=== PATIENT | female | born 1960 | race Caucasian/White ===

== ENCOUNTER 2016-09-19 10:02 | Day surgery (SDC) | payer OTHER ==
[~2016-09-19] VITALS: Ht 154.9 cm; Wt 92.3 kg
[2016-09-19] MEDS ORDERED: LOSARTAN (10:38)
[2016-09-19] MEDS ORDERED: ZOLOFT (10:38)
[2016-09-19] MEDS ORDERED: SIMVASTATIN (10:38)
[2016-09-19] MEDS ORDERED: ADVIL (10:38)
[2016-09-19] MEDS ORDERED: CALCIUM + D3 (10:38)
[2016-09-19] MEDS ORDERED: KEPPRA (10:38)
[2016-09-19 10:40] VITALS: BP 120/74; PULSE 78; RESP 20; Ht 154.9 cm; Wt 92.3 kg
[2016-09-19] MEDS ORDERED: FENTAnyl 50 MCG/ML VIAL ONE (10:42)
[2016-09-19] MEDS ORDERED: PROPOFOL 40 ML ONE (10:42)
[2016-09-19] MEDS ORDERED: MIDAZOLAM 1 MG/ML 2 ML INJ ONE (10:43)
[2016-09-19 11:45] VITALS: BP 107/73; PULSE 62; RESP 22
--- NOTE | 2016-09-19 18:50 | GILP ---
DATE OF PROCEDURE: NAME OF PROCEDURE: Colonoscopy. SURGEON: Kodi Jj MD PREOPERATIVE DIAGNOSIS: Screening colonoscopy. POSTOPERATIVE DIAGNOSES: 1. Colonoscopy all the way to the cecum. 2. Internal hemorrhoids. 3. No colon neoplasm was identified. INDICATION FOR THE PROCEDURE: Ms. Serena Mcbride is a 56-year-old female patient who was scheduled for screening colonoscopy. The procedure and possible complications were well explained to the patient. She understood and con sented to the procedure. DESCRIPTION OF PROCEDURE: Under the influence of anesthesia, the colonoscope was carefully introduc ed in the rectum, and under direct vision, it was advanced all the way to the cecum. FINDINGS: The patient had internal hemorrhoids. No colon neoplasm was identified. She tolerated the procedure very well. There was no complication from the procedure. At the end of the procedure, she was awake with stable vital signs, and she was discharged home to the care of he r family. IMPRESSION: 1. Colonoscopy all the way to the cecum. 2. Internal hemorrhoids. 3. No colon neoplasm was identified. PLAN: Next screening colonoscopy in 10 years. Dictated By: KODI IBRAHIM/JOYCE Conf#: [id number] DID#: [id number]
== END 2016-09-19 14:25 | disposition home or self-care (01) ==
LOC: GIL 10:02
PROVIDERS: ATTEND Internal Medicine Gastroenterology
DX: Z12.11 Encounter for screening for malignant neoplasm of colon (principal); K64.8 Other hemorrhoids; I10 Essential (primary) hypertension
CPT/HCPCS: 45378; J2250; J3010; Z7610

== ENCOUNTER 2017-02-07 12:55 | Emergency (ER) | payer OTHER ==
[~2017-02-07] VITALS: Ht 160 cm; Wt 89.0 kg
[~2017-02-07 12:55] MED LIST: ADVIL; CALCIUM + D3; KEPPRA; LOSARTAN; SIMVASTATIN; ZOLOFT
[2017-02-07 12:57] VITALS: Ht 160 cm; Wt 89.0 kg
[2017-02-07] MEDS ORDERED: DIPHTH/TET/ACEL PERTUSS (ADULT) 0.5 ML VIAL IM* ONE (13:30)
[2017-02-07] MEDS ORDERED: LIDOCAINE 1% (MDV) 20 ML INJ SC ONE (13:30)
[2017-02-07] MEDS ORDERED: NAPR-260 PO (14:40)
--- NOTE | 2017-02-07 14:52 | ERD ---
ER Documentation Chief Complaint Date/Time DATE: 02/07/17 TIME: 14:48 Chief Complaint LEFT BIG TOE INJURY HPI Patient is a 56-year-old female with past medical history of seizures and hypertension and anxiety who presents to the ED with a laceration to her left great toe. She states that a roll of copper fell on her toe today as she was trying to carry it to the garage. She states that this occurred 2 hours ago. She states that she has pain only at her toe she is able to ambulate however she does have pain. Denies fever or chills. Denies passing out or losing consciousness. Denies vomiting. Is not up-to-date with her tetanus vaccine. No other complaints. ROS All systems reviewed and are negative except as per history of present illness. Medications Home Meds Active Scripts Naproxen* (Naprosyn*) 500 Mg Tablet, 500 MG PO BID Y for PAIN AND/OR INFLAMMATION, #30 TAB Prov:SHERRY TOURE PA-C 02/07/17 Reported Medications [Calcium + D3] No Conflict Check 09/19/16 [Advil] No Conflict Check 09/19/16 [Simvastatin] No Conflict Check 09/19/16 [Losartan] No Conflict Check 09/19/16 [Zoloft] No Conflict Check 09/19/16 [Keppra] No Conflict Check 09/19/16 Allergies Allergies: Coded Allergies: No Known Allergy (Unverified , 09/19/16) PMhx/Soc History of Surgery: Yes (RIGHT KNEE SX) Anesthesia Reaction: No Hx Neurological Disorder: Yes (SEIZURES) Hx Respiratory Disorders: No Hx Cardiac Disorders: Yes (HTN, HYPERLIPIDEMIA) Hx Psychiatric Problems: Yes (ANXIETY) Hx Miscellaneous Medical Probl: Yes (OBESITY) Hx Alcohol Use: No Hx Substance Use: No Hx Tobacco Use: No FmHx Family History: No coronary disease, No diabetes, No other Physical Exam Vitals Vital Signs Date Time Temp Pulse Resp B/P Pulse Ox O2 Delivery O2 Flow Rate FiO2 02/07/17 12:57 98.1 78 20 168/89 99 Physical Exam GENERAL: Well-developed, well-nourished female. Appears in no acute distress. HEAD: Normocephalic, atraumatic. EYES: Pupils are equally reactive bilaterally. EOMs grossly intact. No conjunctival erythema. ENT: Moist mucous membranes. No uvula deviation. No kissing tonsils. No exudates. NECK: Supple. No lymphadenopathy or thyromegaly. No meningismus. negative kernig. negative brudinski. LUNG: Clear to auscultation bilaterally. No rhonchi, wheezing, rales or coarse breath sounds. HEART: Regular rate and rhythm. No murmurs, rubs or gallops. Extremities: Equal pulses bilaterally. No peripheral clubbing, cyanosis or edema. No unilateral leg swelling. Tenderness to the left great toe. Mild ecchymosis. 2 horizontal lacerations on the dorsum of the left great toe. Range of motion intact. Sensation intact. No step-offs or deformities. NEUROLOGIC: Alert and oriented. Moving all four extremities. 5/5 strength in all extremities. Normal speech. Steady gait. SKIN: Normal color. Warm and dry. No rashes or lesions. Capillary refill < 2 seconds Results 24 hrs Current Medications Medications (Trade) Dose Ordered Sig/Julian Route PRN Reason Start Time Stop Time Status Last Admin Dose Admin Diphtheria/ Tetanus/Acell Pertussis (Adacel) 0.5 ml ONCE ONCE IM* 02/07/17 13:30 02/07/17 13:31 DC 02/07/17 13:30 Lidocaine (Xylocaine 1% (Mdv) 20 ml) 20 ml ONCE ONCE SC 02/07/17 13:30 02/07/17 13:31 DC Procedures/MDM ER COURSE: I kept the patient and/or family informed of laboratory and diagnostic imaging results throughout the emergency room course. IMAGING STUDIES MEDICATIONS Tetanus. Tolerated well with no adverse reaction. PROCEDURES Laceration Repair by me: Anesthesia: 1% lidocaine locally Location: LEFT GREAT TOE Tendon/Joint/Nerves: No injury Foreign body: None detected after copious irrigation and exploration Technique: 5, 5-0 ETHILON Simple Interrupted Sutures Complexity: No subcutaneous sutures/mucosal repair/ edge excision Post Closure Length: 2 AREAS OF 6 CM EACH Patient's bleeding was easily controlled in the department and there is no indication of anemia. No evidence of compartment syndrome, neurologic injury, vascular injury, open joint, tendon laceration, or foreign body. Patient is appropriate for outpatient follow up. 48 hour wound check. Scar minimization instructions given. MEDICAL DECISION MAKING: This is a 56-year-old female who presents with laceration to her left great toe after sustaining an injury where a copper roll fell on her toe. Vital signs were reviewed. Patient is afebrile. Patient is not hypoxic. Patient is not toxic or ill-appearing. Dr. cunningham reviewed her imaging studies. X-ray does not show any fracture or dislocation. Laceration was sutured here in the ED with no complications. Low suspicion for necrotizing fasciitis, SJS, toxic epidermal necrolysis, Kawasaki, erythema multiforme, gangrene, scarlet fever, meningococcemia, sepsis, anaphylaxis, sepsis, deep space infection, or foreign body. Low suspicion for dislocation, fracture, septic joint, compartment syndrome, osteomyelitis, cellulitis, avascular necrosis, neurological injury, vascular injury, tendon laceration. DISCHARGE: At this time, patient is stable for discharge and outpatient management with no new complaints during the ER course. Patient was sent home with Naprosyn for pain and to return in 2 days for wound check in 7 days for suture removal. Patient will be discharged home with instructions to recheck for new or worsening symptoms such as fever, nausea, weakness, LOC and to follow up with primary care in the next 1-2 days. Patient was advised to return to the ER for any new or worsening symptoms. Plan was discussed and patient and/or family understands and agrees. Home instructions were given. Departure Diagnosis: Primary Impression: Laceration Condition: Stable Patient Instructions: Laceration, Foot Additional Instructions: RETURN IN 2 DAYS FOR WOUND CHECK RETURN IN 7 DAYS FOR SUTURE REMOVAL Call your primary care doctor TOMORROW for an appointment during the next 1-2 days.See the doctor sooner or return here if your condition worsens before your appointment time. SHERRY TOURE PA-C Feb 07, 2017 14:52
--- NOTE | 2017-02-07 15:16 | RADRPT ---
PROCEDURE: XR Great Toe. CLINICAL INDICATION: Pain, trauma. TECHNIQUE: Three views of the right great toe are available for review COMPARISON: Pain/trauma FINDINGS: Moderate soft tissue swelling is seen at the medial and dorsal aspect of the IP joint. There are fa int densities project in this region, which may overlie the patient's skin. There is no acute osseo us abnormality or evidence of fracture. IMPRESSION: 1. Soft tissue swelling with faint radiodensities, possibly overlying the patient skin, to be corre lated clinically. 2. No acute osseous abnormality. RPTAT: EE .Santos Bustamante MD, MD Date Time Electronically viewed and signed by .Santos Bustamante MD, on 02/07/2017 15:15 .d/
== END 2017-02-07 15:00 | disposition home or self-care (01) ==
LOC: FTE 12:55
DX: S91.112A Laceration without foreign body of left great toe without damage to nail, initial encounter (principal); I10 Essential (primary) hypertension; E66.9 Obesity, unspecified; W20.8XXA Other cause of strike by thrown, projected or falling object, initial encounter; Y92.9 Unspecified place or not applicable; Z23 Encounter for immunization; Z68.34 Body mass index [BMI] 34.0-34.9, adult
CPT/HCPCS: 12004; 73660; 90471; 90715; Z7502; Z7610

== ENCOUNTER 2017-02-09 07:33 | Emergency (ER) | payer OTHER ==
[~2017-02-09] VITALS: Ht 160 cm; Wt 93.0 kg
[~2017-02-09 07:33] MED LIST changes: +NAPR-260 PO
[2017-02-09 07:40] VITALS: Ht 160 cm; Wt 93.0 kg
--- NOTE | 2017-02-09 10:20 | ERD ---
ER Documentation Chief Complaint Date/Time DATE: 02/09/17 TIME: 10:17 Chief Complaint 2 DAYS WOUND CHECK HPI This is a 56-year-old female presenting to the emergency department for wound check. Patient had a laceration to right great toe 2 days ago and had 5 sutures placed while the ED here. No warmth, erythema, drainage or bleeding. Sutures are in place and intact. No fevers or chills. Patient states swelling has decreased and pain has improved. ROS All systems reviewed and are negative except as per history of present illness. Medications Home Meds Active Scripts Naproxen* (Naprosyn*) 500 Mg Tablet, 500 MG PO BID Y for PAIN AND/OR INFLAMMATION, #30 TAB Prov:SHERRY TOURE PA-C 02/07/17 Reported Medications [Calcium + D3] No Conflict Check 09/19/16 [Advil] No Conflict Check 09/19/16 [Simvastatin] No Conflict Check 09/19/16 [Losartan] No Conflict Check 09/19/16 [Zoloft] No Conflict Check 09/19/16 [Keppra] No Conflict Check 09/19/16 Allergies Allergies: Coded Allergies: No Known Allergy (Unverified , 09/19/16) PMhx/Soc History of Surgery: Yes (RIGHT KNEE SX) Anesthesia Reaction: No Hx Neurological Disorder: Yes (SEIZURES) Hx Respiratory Disorders: No Hx Cardiac Disorders: Yes (HTN, HYPERLIPIDEMIA) Hx Psychiatric Problems: Yes (ANXIETY) Hx Miscellaneous Medical Probl: Yes (OBESITY) Hx Alcohol Use: No Hx Substance Use: No Hx Tobacco Use: No Physical Exam Vitals Vital Signs Date Time Temp Pulse Resp B/P Pulse Ox O2 Delivery O2 Flow Rate FiO2 02/09/17 07:40 97.6 72 18 148/91 98 Physical Exam Const: Alert, no acute distress Head: Atraumatic Eyes: Normal Conjunctiva ENT: Normal External Ears, Nose and Mouth. Neck: Full range of motion..~ No meningismus. Resp: Clear to auscultation bilaterally Cardio: Regular rate and rhythm, no murmurs Abd: Soft, non tender, non distended. Normal bowel sounds Skin: 5 interrupted sutures to dorsum of right great toe. Sutures are in place and intact. No induration, warmth, drainage or abscess formation. No fluctuance. No surrounding erythema. Back: No midline or flank tenderness Ext: No cyanosis, or edema Neur: Awake and alert Psych: Normal Mood and Affect Procedures/MDM MDM: 56-year-old female presents emergency department for wound check to right great toe. Patient had 5 sutures placed to dorsum of right great toe after heavy object fell on top of toe. Patient denies pain. Sutures are intact and without signs or symptoms of infection. No surrounding erythema or drainage. No fevers or chills. Vital signs are stable. Wound shows no evidence of infection, foreign body, neurologic injury, vascular injury, open joint or tendon laceration. Patient appropriate for outpatient follow up. Instructed patient to follow-up in ED in 5 days for suture removal. Return to ED for any high fever, chest pain, difficulty breathing, shortness breath, wheezing, vomiting, diarrhea, abdominal pain or any new or worsening symptoms. Patient verbalizes understanding. All questions answered at discharge. Departure Diagnosis: Primary Impression: Encounter for wound re-check Condition: Stable Patient Instructions: Wound Care Referrals: LIDYA LYNN (PCP) Additional Instructions: Return to ED in 5 days for suture removal. Return to ED for any high fever, chest pain, difficulty breathing, shortness breath, wheezing, vomiting, diarrhea, abdominal pain or any new or worsening symptoms. KEV SANTIAGO NP Feb 09, 2017 10:19
== END 2017-02-09 08:18 | disposition home or self-care (01) ==
LOC: FTE 07:33
DX: Z48.01 Encounter for change or removal of surgical wound dressing (principal); I10 Essential (primary) hypertension; E66.9 Obesity, unspecified; Z68.36 Body mass index [BMI] 36.0-36.9, adult
CPT/HCPCS: 99281

== ENCOUNTER → 2017-10-03 | Outpatient (CLI) | END | disposition home or self-care (01) ==

== ENCOUNTER 2019-01-21 07:18 | Inpatient (IN) | payer OTHER ==
[~2019-01-21] VITALS: Ht 152.4 cm; Wt 93.0 kg
[2019-01-21] VITALS (14 sets, daily range): BP systolic 94–117; BP diastolic 51–76; PULSE 53–80; RESP 16–20
[2019-01-21] MEDS: LACTATED RINGER'S 1,000 ML IV SCH ×2 (06:30→14:30)
[~2019-01-21 07:18] MED LIST changes: +ACETAMINOPHEN 500 MG TAB PO ONE; +CEFAZOLIN 1 GM/50 ML (PMX) 50 ML IVPB ONE; +CLONIDINE INJ SCH; +DEXAMETHASONE 4 MG/ML 1 ML INJ IV ONE; +LANSOPRAZOLE 30 MG CAP PO ONE; +MORPHINE SULFATE INJ SCH; -NAPR-260 PO; +NAPR-985 PO; +ONDANSETRON 4 MG INJ IV ONE; +ROPIVACAINE INJ SCH; +[UNRECOGNIZED DRUG - OTHER] INJ SCH; +oxyCODONE (CR) 10 MG TAB [oxyCONTIN] PO ONE
[2019-01-21] MEDS ORDERED: LACO200T2 PO (07:52)
[2019-01-21] MEDS ORDERED: TOPI100T11 PO (07:53)
[2019-01-21] MEDS ORDERED: LEVE100018 PO (07:53)
[2019-01-21] MEDS ORDERED: LOSA100T15 PO (07:54)
[2019-01-21] MEDS ORDERED: SERT100T PO (07:54)
[2019-01-21] MEDS ORDERED: CALC1TAB79 PO (07:55)
[2019-01-21] MEDS ORDERED: SIMV10TA PO (07:55)
[2019-01-21] MEDS ORDERED: ACETAMINOPHEN 1000MG/100ML IV 100 ML IVPB ONE (08:00)
[2019-01-21] MEDS ORDERED: morphine SULFATE/PF (10 MG/10 ML) INJ ONE (08:38)
[2019-01-21] MEDS ORDERED: GLYCOPYRROLATE 0.4 MG INJ ONE (08:38)
[2019-01-21] MEDS ORDERED: CEFAZOLIN 1 GM INJ ONE (08:38)
[2019-01-21] MEDS ORDERED: NEOSTIGMINE 3 MG/3 ML SYRINGE ONE (08:38)
[2019-01-21] MEDS ORDERED: DEXAMETHASONE 4 MG/ML 5 ML INJ ONE (08:38)
[2019-01-21] MEDS ORDERED: MIDAZOLAM 1 MG/ML 2 ML INJ ONE (08:38)
[2019-01-21] MEDS ORDERED: ONDANSETRON 4 MG INJ ONE (08:38)
[2019-01-21] MEDS ORDERED: PROPOFOL 20 ML ONE (08:38)
[2019-01-21] MEDS ORDERED: FENTAnyl 50 MCG/ML VIAL ONE (08:38)
[2019-01-21] MEDS ORDERED: ROCURONIUM 50 MG INJ ONE (08:38)
[2019-01-21] MEDS ORDERED: ROPIVACAINE 0.5 % 30 ML VIAL ONE ×2 (08:38→12:43)
[2019-01-21] MEDS ORDERED: BACITRACIN 50000 UNITS INJ ONE (10:14)
[2019-01-21] MEDS ORDERED: POLYMYXIN B 500000 UNIT INJ ONE (10:17)
--- NOTE | 2019-01-21 10:19 | PREAC ---
Date/Time of Note Date/Time of Note DATE: 01/21/19 TIME: 10:17 Anesthesia Eval and Record Evaluation Time Pre-Procedure Interview DATE: 01/21/19 TIME: 10:16 Age 58 Sex female NPO: 8 hrs Preoperative diagnosis RIGHT KNEE PRIMARY OSTEOARTHRITIS Planned procedure RIGHT TOTAL KNEE ARTHROPLASTY Past Medical History Past Medical History: Includes Cardio: HTN, Dyslipidemia Neuro: Seizure disorder (ABSENT SEIZURES THAT LAST 10-15 SECONDS, NO MOVEMENTS) GI: Morbid obesity Surgery & Anesthesia Issues No known issue Meds Anticoagulation: No Beta Phill within 24 hr: No Reason Beta Phill not given: Pt. not on B-Phill Reported Medications Calcium Carbonate/Vitamin D3 (Oysco 500+D Tablet) 1 Each Tablet, 2 EACH PO BID, TAB 01/21/19 Simvastatin* (Zocor*) 10 Mg Tablet, 10 MG PO QHS, #30 TAB 01/21/19 Losartan Potassium* (Losartan Potassium*) 100 Mg Tablet, 100 MG PO DAILY, TAB 01/21/19 Sertraline Hcl* (Zoloft*) 100 Mg Tablet, 100 MG PO QHS, #30 TAB 01/21/19 Levetiracetam* (Keppra*) 1,000 Mg Tablet, 2000 MG PO BID, TAB 01/21/19 Topiramate* (Topiramate*) 100 Mg Tablet, 200 MG PO BID, TAB 01/21/19 Lacosamide (Vimpat) 200 Mg Tablet, 200 MG PO BID, TAB 01/21/19 Discontinued Reported Medications [Calcium + D3] No Conflict Check 09/19/16 [Advil] No Conflict Check 09/19/16 [Simvastatin] No Conflict Check 09/19/16 [Losartan] No Conflict Check 09/19/16 [Zoloft] No Conflict Check 09/19/16 [Keppra] No Conflict Check 09/19/16 Discontinued Scripts Naproxen* (Naprosyn*) 500 Mg Tablet, 500 MG PO BID PRN for PAIN AND/OR INFLAMMATION, #30 TAB Prov:SHERRY TOURE PA-C 02/07/17 Current Medications Lactated Ringer's 1,000 ml @ 125 mls/hr Q8H IV Last administered on 01/21/19at 06:30; Admin Dose 125 MLS/HR; Start 01/21/19 at 06:30; Stop 01/21/19 at 16:00 Ropivacaine/ Morphine Sulfate/ Clonidine HCl/ Ketorolac Tromethamine/ Vancomycin HCl/ Sodium Chloride/ Epinephrine CEFUROXIME CURRENTLY ... INTRA-OP INJ ; Start 01/21/19 at 06:30; Stop 01/21/19 at 16:00 Meds reviewed: Yes Allergies Coded Allergies: No Known Allergy (Unverified , 01/21/19) Allergies Reviewed: Yes Labs/Studies Labs Reviewed: Reviewed by anesthesiologist test: N/A Studies: ECG (RBBB), CXR (NAPD) Pre-procedure Exam Last vitals Vital Signs Date Temp Pulse Resp B/P (MAP) Pulse Ox O2 O2 Flow FiO2 Time Delivery Rate 01/21/19 97.4 63 20 117/76 97 Room Air 08:33 (90) Airway: Adequate mouth opening, Adequate thyromental dist Mallampati: Mallampati II Teeth: Normal Lung: Normal Heart: Normal ASA Physical Status ASA physical status: 3 Emergency: None Planned Anesthetic General/MAC: ETT Neuraxial: Spinal Nerve block: Femoral (right) Planned Pain Management Sub-arachniod narcotics, Single shot nerve block, Parenteral pain med Pre-operative Attestations Prior to commencing anesthesia and surgery, the patient was re-evaluated, there was verification of: *The patient's identity *The results of appropriate recent lab work and preoperative vital signs *The above evaluation not changing prior to induction *Anesthetic plan, risk benefits, alternative and complications discussed with patient/family; questions answered; patient/family understands, accepts and wishes to proceed. Willis Avendano M.D. Jan 21, 2019 10:19
--- NOTE | 2019-01-21 10:23 | HPN ---
Date/Time of Note Date/Time of Note DATE: 01/21/19 TIME: 10:23 Interval H&P Admission Note Pt. seen H&P reviewed: No system changes RAYSA CLAIRE MD Jan 21, 2019 10:23
[2019-01-21] MEDS: TRANEXAMIC ACID 1GM/100ML(PMX) 100 ML INTRA-OP X1 IVPB ONE ×2 (10:43→11:51)
[2019-01-21] MEDS ORDERED: HYDROmorphONE 0.5 MG/0.5 ML SYG IV PRN ×2 (11:30)
[2019-01-21] MEDS ORDERED: IPRATROPIUM (NEB) 0.5 MG/2.5 ML AMP HHN PRN (11:30)
[2019-01-21] MEDS ORDERED: ZOLPIDEM 5 MG TAB PO PRN (11:30)
[2019-01-21] MEDS ORDERED: NALOXONE (0.4 MG/ML) INJ IV PRN ×2 (11:30→12:30)
[2019-01-21] MEDS ORDERED: MEPERIDINE 25 MG INJ IV PRN (11:30)
[2019-01-21] MEDS ORDERED: hydrALAzine 20 MG INJ IV PRN (11:30)
[2019-01-21] MEDS ORDERED: OXYCODONE/ACETAMINOPHEN (5/325) TAB PO PRN ×2 (11:30)
[2019-01-21] MEDS ORDERED: TRIMETHOBENZAMIDE 100 MG/ML VIAL IM PRN ×2 (11:30)
[2019-01-21] MEDS ORDERED: EPHEDrine 25 MG/5 ML SYG IV PRN (11:30)
[2019-01-21] MEDS ORDERED: MIDAZOLAM 1 MG/ML 2 ML INJ IV PRN (11:30)
[2019-01-21] MEDS ORDERED: FENTAnyl 50 MCG/ML VIAL IV PRN ×3 (11:30)
[2019-01-21] MEDS ORDERED: LABETALOL HCL 20MG INJ IV PRN (11:30)
[2019-01-21] MEDS ORDERED: ONDANSETRON 4 MG INJ IV PRN ×2 (11:30)
[2019-01-21] MEDS ORDERED: DIPHENHYDRAMINE 50 MG INJ IV PRN ×2 (11:30)
[2019-01-21] MEDS ORDERED: ALBUTEROL 0.083% (NEB) 2.5 MG/3 ML AMP HHN PRN (11:30)
[2019-01-21] MEDS ORDERED: NALBUPHINE HCL (10 MG/1 ML) INJ IV PRN (11:30)
[2019-01-21] MEDS ORDERED: HYDROmorphONE 1 MG/5 ML IV SYRINGE IV PRN ×3 (11:30)
[2019-01-21] MEDS: TRANEXAMIC ACID 1GM/100ML(PMX) 100 ML PRE-OP X1 IVPB ONE ×2 (11:52→12:19)
--- NOTE | 2019-01-21 12:25 | SIPON ---
Date/Time of Note Date/Time of Note DATE: 01/21/19 TIME: 12:24 Operative Report Preoperative Diagnosis Right Knee Osteoarthritis Postoperative Diagnosis Same Operation/Procedure Performed Right Total Knee Arthroplasty Surgeon Jensen Claire MD operational assistant Geoffrey Leslie Second assist: BAYLEE PERDOMO Anesthesia: spinal Estimated blood loss: 250 - 300 ml's Transfusion Required none Specimen bone Grafts/Implants none Complications none JENSEN CLAIRE MD Jan 21, 2019 12:25
[2019-01-21] MEDS ORDERED: ASPIRIN 81 MG TAB PO ONE (12:30)
[2019-01-21] MEDS ORDERED: SENNA/DOCUSATE NA (8.6MG/50MG) TAB PO PRN (12:30)
[2019-01-21] MEDS ORDERED: NACL 0.9% 3 ML SYG IV SCH (12:30)
[2019-01-21] MEDS ORDERED: SUGAMMADEX SODIUM 200 MG/2 ML VIAL IV ONE (12:35)
--- NOTE | 2019-01-21 12:36 | OPR ---
Date/Time of Note Date/Time of Note DATE: 01/21/19 TIME: 12:28 Operative Report Free Text/Dictation DATE OF OPERATION: January 21, 2019 SURGEON: Raysa Claire MD SOUR BLEACHING PLEATER: Geoffrey DONIS SOUR BLEACHING PLEATER: BRIDGETTE Aponte PREOPERATIVE DIAGNOSIS: Right knee osteoarthritis. POSTOPERATIVE DIAGNOSIS: Right knee osteoarthritis. PROCEDURES PERFORMED: Right total knee arthroplasty, CPT code 54967. ANESTHESIOLOGIST: Dr. Avendano ANESTHESIA: Spinal. ESTIMATED BLOOD LOSS: 300 mL. COMPLICATIONS: None. SPECIMENS: Resected bone. DISPOSITION: PACU in stable condition. TOURNIQUET TIME: 44 minutes at 250 mmHg. IMPLANT USED: Vu and Nephew size 4 Maddy tibial baseplate, size 5 standard posterior stabilized Oxinium femur, size 9mm high flexion polyethylene, size 32 mm patella, 10 x 100 mm stem. INDICATION FOR PROCEDURE: This is an 58-year-old female with end-stage osteoarthritis of the right knee who had failed nonoperative management. Risks, benefits, alternatives of surgical intervention were discussed with the patient and informed consent was obtained. The risks of surgery include but are not limited to infection, deep venous thrombosis, pulmonary embolism, damage to nerves and blood vessels, numbness around incision site, stiffness of knee, need for total knee manipulation under anesthesia, need for blood transfuion, heart attack, stroke, risks associated with anesthesia, implant loosening, wear of prosthesis, need for revision surgery, and . DESCRIPTION OF PROCEDURE: The patient was met in the preoperative suite. The correct operative site was confirmed and marked. The patient was then brought into operating room. After induction of anesthesia, the patient was placed in the supine position on the operating room table. A tourniquet was applied to right upper thigh. The right lower extremity was prepped and draped in the usual sterile fashion. Before starting, a timeout was taken to identify the correct operative site and confirm preoperative antibiotics consisting of 1 g of IV Ancef, along with 1 g of tranexamic acid were administered. At this point, the right leg was elevated and exsanguinated with an Esmarch and tourniquet was then insufflated for the above noted time. A midline incision was made and median parapatellar arthrotomy was then completed. The lateral patellar retinacular ligaments were released. A sleeve of tissue was released from the medial proximal tibia. The cruciate ligaments and the menisci were then excised. At this point, the custom distal femur cutting block was then pinned and 9.5 mm was resected from the distal femur. Since the patient had a 15 degree flexion contracture, additional 2 mm was resected. The 4-in-1 cutting block, size 5 was then placed. An wilda wing was used to confirm that notching of the anterior cortex of the femur would not occur. The anterior and posterior condylar cuts were completed followed by the anterior and posterior chamfer cuts. The osteophytes were then removed with a rongeur. At this point, the tibia was subluxed anteriorly. Appropriate retractors were placed. The custom tibial cutting block was then pinned. The drop was used to ensure the correct alignment. Approximately 11 mm was resected off the lateral tibial plateau and 9 mm off the medial tibial plateau. Osteophytes were then removed. At this point, the flexion extension gaps were checked with a 9 mm gap photo checker and assembler and noted to be equal. Next, trial 5 standard femur was then pinned and the box cut was then completed. The tibia was then subluxed anteriorly and measured to size 4. The tibial tray was then pinned and a keel was then punched. The trial components were placed with a 9 mm polyethylene and noted to have full extension and greater than 120 degrees of flexion. The patella was then subluxed laterally and sized to 24 mm. Approximately, 9 mm was resected. The patellar was sized to 32 mm. The button was placed and noted to have excellent patellar tracking. The trial components were removed. Given the patient's BMI of 40, a 10 x 100 mm stem was used. Therefore, reaming was performed. All bony surfaces were pulse lavaged and dried. The appropriate size components were then cemented and the knee was held in extension with a 9 mm trial polyethylene until the cement cured. Once the cement had cured, the trial polyethylene was removed and the appropriate size polyethylene was then placed. The tranexamic acid was redosed. The cocktail was then injected. The extensor mechanism was closed using #1 Stratafix and the subcutaneous tissue with 2-0 Vicryl and the skin with 4-0 Monocryl. Steri-Strips were applied along with a sterile dressing. There were no complications. The patient was transferred to PACU in stable condition. POSTOPERATIVE CARE: The patient will be weightbearing as tolerated. The patient will work with physical therapy, and will receive two additional doses of IV antibiotics along with aspirin 81 mg p.o. b.i.d. for 6 weeks. Upon disc harge, patient will follow up in my office within 2 weeks postoperatively. RAYSA CLAIRE MD Jan 21, 2019 12:36
[2019-01-21] MEDS: GABAPENTIN 100 MG CAP PO SCH ×2 (13:00→21:56)
[2019-01-21] MEDS: CEFAZOLIN 2 GM/50 ML (PMX) 50 ML IVPB SCH ×2 (13:31→21:57)
[2019-01-21] MEDS: ONDANSETRON 4 MG INJ IV SCH ×2 (13:33→18:23)
[2019-01-21] MEDS ORDERED: LIDOCAINE 2% (SDV) 5 ML INJ IV ONE (14:29)
[2019-01-21] MEDS ORDERED: LORAZEPAM 2 MG INJ IV PRN (15:00)
--- NOTE | 2019-01-21 15:07 | CONS ---
Assessment/Plan Assessment/Plan Hospital Course (Demo Recall) SUBJECTIVE: Lying in bed comfortably. OBJECTIVE: Vital signs-see below PHYSICAL EXAM: Constitutional: Morbidly obese female,not in acute distress. HEENT: Head atraumatic and normocephalic. Eyes: Extraocular muscles intact. Anicteric sclerae. Pupils equal bilaterally, reactive to light. NECK: Supple without lymph node. CHEST: Clear and good breath sounds equally. No wheezing. No rhonchi. HEART: S1, S2. Regular rate and rhythm. ABDOMEN: Soft/non tender with no rebound tenderness. Bowel sounds were present. EXTREMITIES: RLE w/MARVA wrap/dressing c/d/i. No cyanosis, clubbing or edema. NEUROLOGIC: Alert and oriented x3. No focal deficit. No sensory deficit. PSYCHOSOCIAL: No signs of depression. INTEGUMENTARY: No open wounds. ASSESSMENT AND PLAN:58-year-old morbidly obese female with a past medical history of seizure disorders, hypertension, hypercholesteremia, Meniscus surgery, right knee osteoarthritis, who was brought in for elective right total knee arthroplasty... Right Knee Osteoarthritis -s/p R total knee arthroplasty -Post op weight bearing/dvt ppx/pain control per orthopedics team Seizure disorders -Pt had a breakthrough seizure about a month ago-had neuro f/u then -Resume oupt Keppra/Vimpat/Topiramate dosage -Seizure precautions,monitor lites level closely during post op curse -Outpt neuro f/u HTN -Currently BP lower side- resume Losartan in AM Dyslipidemia -Resume statin Morbid obesity/BMI 40.0 -f/u A1C/lipid panel DVT ppx:ASA BID per ortho Thank you for allowing us to see this pleasant female. Please call us for any questions Approximately 60mins spent on this consultation Patient was seen in collaboration w/ Consultation Date/Type/Reason Admit Date/Time Jan 21, 2019 at 07:18 Type of Consult IM Reason for Consultation Co-medical mgmt Requesting Provider: RAYSA ARANDA MD Date/Time of Note DATE: 01/21/19 TIME: 14:58 Hx of Present Illness This is a very pleasant 58-year-old morbidly obese female with a past medical history of seizure disorders, hypertension, hypercholesteremia, Meniscus surgery, right knee osteoarthritis, who was brought in for elective right total knee arthroplasty. Patient underwent a right total knee arthroplasty with Dr.Shahin Aranda on 01/21/2019. Hospitalist consultation was requested postoperatively for co-medical management. At my encounter with the patient, she appears very comfortable. She denied any numbness, tingling, loss of sensation on right lower extremity.Denied cp,palpitation,SOB,N/V/abdominal pain, fever, chills, diarrhea, headache, speech difficulties,vision chnages or other discomfort.Stable vitals. 12 point ROS negative except for HPI Past Medical History SEE HPI Home Meds Reported Medications Calcium Carbonate/Vitamin D3 (Oysco 500+D Tablet) 1 Each Tablet, 2 EACH PO BID, TAB 01/21/19 Simvastatin* (Zocor*) 10 Mg Tablet, 10 MG PO QHS, #30 TAB 01/21/19 Losartan Potassium* (Losartan Potassium*) 100 Mg Tablet, 100 MG PO DAILY, TAB 01/21/19 Sertraline Hcl* (Zoloft*) 100 Mg Tablet, 100 MG PO QHS, #30 TAB 01/21/19 Levetiracetam* (Keppra*) 1,000 Mg Tablet, 2000 MG PO BID, TAB 01/21/19 Topiramate* (Topiramate*) 100 Mg Tablet, 200 MG PO BID, TAB 01/21/19 Lacosamide (Vimpat) 200 Mg Tablet, 200 MG PO BID, TAB 01/21/19 Discontinued Reported Medications [Calcium + D3] No Conflict Check 09/19/16 [Advil] No Conflict Check 09/19/16 [Simvastatin] No Conflict Check 09/19/16 [Losartan] No Conflict Check 09/19/16 [Zoloft] No Conflict Check 09/19/16 [Keppra] No Conflict Check 09/19/16 Discontinued Scripts Naproxen* (Naprosyn*) 500 Mg Tablet, 500 MG PO BID PRN for PAIN AND/OR INFLAMMATION, #30 TAB Prov:SHERRY TOURE PA-C 02/07/17 Medications Current Medications Lactated Ringer's 1,000 ml @ 125 mls/hr Q8H IV Last administered on 01/21/19at 06:30; Admin Dose 125 MLS/HR; Start 01/21/19 at 06:30; Stop 01/21/19 at 16:00 Ropivacaine/ Morphine Sulfate/ Clonidine HCl/ Ketorolac Tromethamine/ Vancomycin HCl/ Sodium Chloride/ Epinephrine CEFUROXIME CURRENTLY ... INTRA-OP INJ Last administered on 01/21/19at 11:26; Admin Dose 115.5 ML; Start 01/21/19 at 06:30; Stop 01/21/19 at 16:00 Hydromorphone HCl (Dilaudid) 0.2 mg PACU PRN IV MILD PAIN 1-3; Start 01/21/19 at 11:30; Stop 01/21/19 at 17:00 Hydromorphone HCl (Dilaudid) 0.4 mg PACU PRN IV MOD PAIN 4-6; Start 01/21/19 at 11:30; Stop 01/21/19 at 17:00 Hydromorphone HCl (Dilaudid) 0.6 mg PACU PRN IV SEVERE PAIN 7-10; Start 01/21/19 at 11:30; Stop 01/21/19 at 17:00 Fentanyl (Sublimaze) 25 mcg PACU ORDER PRN IV MILD PAIN 1-3; Start 01/21/19 at 11:30; Stop 01/21/19 at 17:00 Fentanyl (Sublimaze) 50 mcg PACU ORDER PRN IV MOD PAIN 4-6; Start 01/21/19 at 11:30; Stop 01/21/19 at 17:00 Fentanyl (Sublimaze) 75 mcg PACU ORDER PRN IV SEVERE PAIN 7-10; Start 01/21/19 at 11:30; Stop 01/21/19 at 17:00 Oxycodone/ Acetaminophen (Percocet (5/ 325)) 1 tab PACU ORDER PRN PO .PAIN 1-5; Start 01/21/19 at 11:30; Stop 01/21/19 at 17:00 Oxycodone/ Acetaminophen (Percocet (5/ 325)) 2 tab PACU ORDER PRN PO .PAIN 6-10; Start 01/21/19 at 11:30; Stop 01/21/19 at 17:00 Ondansetron HCl (Zofran Inj) 4 mg PACU ORDER PRN IV NAUSEA/VOMITING; Start 01/21/19 at 11:30; Stop 01/21/19 at 17:00 Trimethobenzamide HCl (Tigan) 200 mg PACU ORDER PRN IM NAUSEA/VOMITING; Start 01/21/19 at 11:30; Stop 01/21/19 at 17:00 Labetalol HCl (Labetalol) 5 mg PACU ORDER PRN IV HIGH BLOOD PRESSURE; Start 01/21/19 at 11:30; Stop 01/21/19 at 17:00 Hydralazine HCl (Apresoline) 5 mg PACU ORDER PRN IV HIGH BLOOD PRESSURE; Start 01/21/19 at 11:30; Stop 01/21/19 at 17:00 Ephedrine Sulfate 5 mg PACU ORDER PRN IV BLOOD PRESSURE SUPPORT; Start 01/21/19 at 11:30; Stop 01/21/19 at 17:00 Albuterol (Proventil 0.083% (Neb)) 2.5 mg PACU ORDER PRN HHN .WHEEZING; Start 01/21/19 at 11:30; Stop 01/21/19 at 17:00 Ipratropium Brick (Atrovent 0.02% (Neb)) 0.5 mg PACU ORDER PRN HHN .WHEEZING; Start 01/21/19 at 11:30; Stop 01/21/19 at 17:00 Meperidine HCl (Demerol) 25 mg PACU ORDER PRN IV .RIGORS; Start 01/21/19 at 11:30; Stop 01/21/19 at 17:00 Diphenhydramine HCl (Benadryl) 25 mg PACU ORDER PRN IV .PRURITUS; Start 01/21/19 at 11:30; Stop 01/21/19 at 17:00 Midazolam HCl (Versed) 0.5 mg PACU ORDER PRN IV .ANXIETY; Start 01/21/19 at 11:30; Stop 01/21/19 at 17:00 Hydromorphone HCl (Dilaudid) 0.2 mg Q2H PRN IV .PAIN 1-5; Start 01/21/19 at 11:30 Hydromorphone HCl (Dilaudid) 0.4 mg Q2H PRN IV .PAIN 6-10; Start 01/21/19 at 11:30 Diphenhydramine HCl (Benadryl) 25 mg Q4H PRN IV .PRURITUS; Start 01/21/19 at 11:30 Nalbuphine HCl (Nubain) 10 mg Q4H PRN IV .PRURITUS; Start 01/21/19 at 11:30 Ondansetron HCl (Zofran Inj) 4 mg Q6H PRN IV .NAUSEA/VOMITING; Start 01/21/19 at 11:30 Trimethobenzamide HCl (Tigan) 200 mg Q6H PRN IM .NAUSEA/VOMITING; Start 01/21/19 at 11:30 Zolpidem Tartrate (Ambien) 5 mg HS MAY REPEAT X 1 PRN PO .INSOMNIA; Start 01/21/19 at 11:30 Naloxone HCl (Narcan) 0.2 mg Q2M PRN IV .RESP RATE; Start 01/21/19 at 11:30 Miscellaneous Information (* Miscellaneous Pharmacy Order) DURAMORPH: 0.1 MG SPI... GIVEN NEURAXIAL XX ; Start 01/21/19 at 11:30 IV Flush (NS 3 ml) 3 ml PER PROTOCOL IV ; Start 01/21/19 at 12:30 Oxycodone HCl (Roxicodone) 5 mg Q4H PRN PO .PAIN; Start 01/21/19 at 12:30 Ketorolac Tromethamine (Toradol) 15 mg Q6H PRN IV .PAIN; Start 01/21/19 at 12:30 Ondansetron HCl (Zofran Inj) 4 mg Q6H IV Last administered on 01/21/19at 13:33; Admin Dose 4 MG; Start 01/21/19 at 12:30; Stop 01/22/19 at 06:31 Cefazolin Sodium/ Dextrose 50 ml @ 100 mls/hr Q8H IVPB Last administered on 01/21/19at 13:31; Admin Dose 100 MLS/HR; Start 01/21/19 at 14:00; Stop 01/22/19 at 06:29 Celecoxib (Celebrex) 100 mg BID PO ; Start 01/22/19 at 09:00 Gabapentin (Neurontin) 100 mg TID PO ; Start 01/21/19 at 13:00 Pantoprazole (Protonix Tab) 40 mg DAILY@06 PO ; Start 01/23/19 at 06:00 Senna/Docusate Sodium (Senokot-S) 2 tab BID PRN PO .CONSTIPATION; Start 01/21/19 at 12:30 Naloxone HCl (Narcan) 0.2 mg Q2M PRN IV .RESP RATE; Start 01/21/19 at 12:30 Allergies: Coded Allergies: No Known Allergy (Unverified , 01/21/19) Past Surgical History SEE HPI Social History Smokes pot everyday. Social drinking. Smoking Status: Never smoker Exam/Review of Systems Exam Vitals Vital Signs Date Temp Pulse Resp B/P (MAP) Pulse Ox O2 O2 Flow FiO2 Time Delivery Rate 01/21/19 98.9 62 18 97/58 (71) 99 Nasal 14:26 Cannula Medications Medication Current Medications Lactated Ringer's 1,000 ml @ 125 mls/hr Q8H IV Last administered on 01/21/19at 06:30; Admin Dose 125 MLS/HR; Start 01/21/19 at 06:30; Stop 01/21/19 at 16:00 Ropivacaine/ Morphine Sulfate/ Clonidine HCl/ Ketorolac Tromethamine/ Vancomycin HCl/ Sodium Chloride/ Epinephrine CEFUROXIME CURRENTLY ... INTRA-OP INJ Last administered on 01/21/19at 11:26; Admin Dose 115.5 ML; Start 01/21/19 at 06:30; Stop 01/21/19 at 16:00 Hydromorphone HCl (Dilaudid) 0.2 mg PACU PRN IV MILD PAIN 1-3; Start 01/21/19 at 11:30; Stop 01/21/19 at 17:00 Hydromorphone HCl (Dilaudid) 0.4 mg PACU PRN IV MOD PAIN 4-6; Start 01/21/19 at 11:30; Stop 01/21/19 at 17:00 Hydromorphone HCl (Dilaudid) 0.6 mg PACU PRN IV SEVERE PAIN 7-10; Start 01/21/19 at 11:30; Stop 01/21/19 at 17:00 Fentanyl (Sublimaze) 25 mcg PACU ORDER PRN IV MILD PAIN 1-3; Start 01/21/19 at 11:30; Stop 01/21/19 at 17:00 Fentanyl (Sublimaze) 50 mcg PACU ORDER PRN IV MOD PAIN 4-6; Start 01/21/19 at 11:30; Stop 01/21/19 at 17:00 Fentanyl (Sublimaze) 75 mcg PACU ORDER PRN IV SEVERE PAIN 7-10; Start 01/21/19 at 11:30; Stop 01/21/19 at 17:00 Oxycodone/ Acetaminophen (Percocet (5/ 325)) 1 tab PACU ORDER PRN PO .PAIN 1-5; Start 01/21/19 at 11:30; Stop 01/21/19 at 17:00 Oxycodone/ Acetaminophen (Percocet (5/ 325)) 2 tab PACU ORDER PRN PO .PAIN 6-10; Start 01/21/19 at 11:30; Stop 01/21/19 at 17:00 Ondansetron HCl (Zofran Inj) 4 mg PACU ORDER PRN IV NAUSEA/VOMITING; Start 01/21/19 at 11:30; Stop 01/21/19 at 17:00 Trimethobenzamide HCl (Tigan) 200 mg PACU ORDER PRN IM NAUSEA/VOMITING; Start 01/21/19 at 11:30; Stop 01/21/19 at 17:00 Labetalol HCl (Labetalol) 5 mg PACU ORDER PRN IV HIGH BLOOD PRESSURE; Start 01/21/19 at 11:30; Stop 01/21/19 at 17:00 Hydralazine HCl (Apresoline) 5 mg PACU ORDER PRN IV HIGH BLOOD PRESSURE; Start 01/21/19 at 11:30; Stop 01/21/19 at 17:00 Ephedrine Sulfate 5 mg PACU ORDER PRN IV BLOOD PRESSURE SUPPORT; Start 01/21/19 at 11:30; Stop 01/21/19 at 17:00 Albuterol (Proventil 0.083% (Neb)) 2.5 mg PACU ORDER PRN HHN .WHEEZING; Start 01/21/19 at 11:30; Stop 01/21/19 at 17:00 Ipratropium Brick (Atrovent 0.02% (Neb)) 0.5 mg PACU ORDER PRN HHN .WHEEZING; Start 01/21/19 at 11:30; Stop 01/21/19 at 17:00 Meperidine HCl (Demerol) 25 mg PACU ORDER PRN IV .RIGORS; Start 01/21/19 at 11:30; Stop 01/21/19 at 17:00 Diphenhydramine HCl (Benadryl) 25 mg PACU ORDER PRN IV .PRURITUS; Start 01/21/19 at 11:30; Stop 01/21/19 at 17:00 Midazolam HCl (Versed) 0.5 mg PACU ORDER PRN IV .ANXIETY; Start 01/21/19 at 11:30; Stop 01/21/19 at 17:00 Hydromorphone HCl (Dilaudid) 0.2 mg Q2H PRN IV .PAIN 1-5; Start 01/21/19 at 11:30 Hydromorphone HCl (Dilaudid) 0.4 mg Q2H PRN IV .PAIN 6-10; Start 01/21/19 at 11:30 Diphenhydramine HCl (Benadryl) 25 mg Q4H PRN IV .PRURITUS; Start 01/21/19 at 11 :30 Nalbuphine HCl (Nubain) 10 mg Q4H PRN IV .PRURITUS; Start 01/21/19 at 11:30 Ondansetron HCl (Zofran Inj) 4 mg Q6H PRN IV .NAUSEA/VOMITING; Start 01/21/19 at 11:30 Trimethobenzamide HCl (Tigan) 200 mg Q6H PRN IM .NAUSEA/VOMITING; Start 01/21/19 at 11:30 Zolpidem Tartrate (Ambien) 5 mg HS MAY REPEAT X 1 PRN PO .INSOMNIA; Start 01/21/19 at 11:30 Naloxone HCl (Narcan) 0.2 mg Q2M PRN IV .RESP RATE; Start 01/21/19 at 11:30 Miscellaneous Information (* Miscellaneous Pharmacy Order) DURAMORPH: 0.1 MG SPI... GIVEN NEURAXIAL XX ; Start 01/21/19 at 11:30 IV Flush (NS 3 ml) 3 ml PER PROTOCOL IV ; Start 01/21/19 at 12:30 Oxycodone HCl (Roxicodone) 5 mg Q4H PRN PO .PAIN; Start 01/21/19 at 12:30 Ketorolac Tromethamine (Toradol) 15 mg Q6H PRN IV .PAIN; Start 01/21/19 at 12:30 Ondansetron HCl (Zofran Inj) 4 mg Q6H IV Last administered on 01/21/19at 13:33; Admin Dose 4 MG; Start 01/21/19 at 12:30; Stop 01/22/19 at 06:31 Cefazolin Sodium/ Dextrose 50 ml @ 100 mls/hr Q8H IVPB Last administered on 01/21/19at 13:31; Admin Dose 100 MLS/HR; Start 01/21/19 at 14:00; Stop 01/22/19 at 06:29 Celecoxib (Celebrex) 100 mg BID PO ; Start 01/22/19 at 09:00 Gabapentin (Neurontin) 100 mg TID PO ; Start 01/21/19 at 13:00 Pantoprazole (Protonix Tab) 40 mg DAILY@06 PO ; Start 01/23/19 at 06:00 Senna/Docusate Sodium (Senokot-S) 2 tab BID PRN PO .CONSTIPATION; Start 01/21/19 at 12:30 Naloxone HCl (Narcan) 0.2 mg Q2M PRN IV .RESP RATE; Start 01/21/19 at 12:30 LONI FINLEY NP Jan 21, 2019 15:07
[2019-01-21] MEDS: KETOROLAC 15 MG INJ IV PRN (18:24)
[2019-01-21] MEDS ORDERED: SERTRALINE 100 MG TAB PO SCH (21:00)
[2019-01-21] MEDS ORDERED: ATORVASTATIN 10 MG TAB PO SCH (21:00)
[2019-01-21] MEDS: LEVETIRACETAM 500 MG TAB PO SCH (21:56)
[2019-01-21] MEDS: TOPIRAMATE 100 MG TAB PO SCH (21:56)
[2019-01-21] MEDS: LACOSAMIDE (100 MG/10 ML PO SYR) PO SCH (21:57)
[2019-01-21] MEDS: oxyCODONE 5 MG TAB PO PRN (22:12)
[2019-01-22] MEDS: ONDANSETRON 4 MG INJ IV SCH ×2 (00:47→05:36)
[2019-01-22 02:10] VITALS: BP 97/56; PULSE 58; RESP 16
[2019-01-22] MEDS: KETOROLAC 15 MG INJ IV PRN ×3 (04:30→15:59)
[2019-01-22] MEDS: oxyCODONE 5 MG TAB PO PRN ×4 (05:36→20:17)
[2019-01-22] MEDS: CEFAZOLIN 2 GM/50 ML (PMX) 50 ML IVPB SCH (05:37)
[2019-01-22 06:20] VITALS: BP 109/68; PULSE 60; RESP 19
[2019-01-22 07:49] VITALS: BP 88/51; PULSE 57; RESP 17
[2019-01-22] MEDS: LEVETIRACETAM 500 MG TAB PO SCH (08:38)
[2019-01-22] MEDS: TOPIRAMATE 100 MG TAB PO SCH (08:38)
[2019-01-22] MEDS: GABAPENTIN 100 MG CAP PO SCH ×2 (08:38→13:26)
[2019-01-22] MEDS: LACOSAMIDE (100 MG/10 ML PO SYR) PO SCH (08:39)
--- NOTE | 2019-01-22 08:57 | PAC ---
Date/Time of Note Date/Time of Note DATE: 01/22/19 TIME: 08:57 Post-Anesthesia Notes Post-Anesthesia Note Last documented vital signs Vital Signs Date Temp Pulse Resp B/P (MAP) Pulse Ox O2 O2 Flow FiO2 Time Delivery Rate 01/22/19 98.4 57 17 88/51 (63) 100 Room Air 07:49 Activity: WNL Respiratory function: WNL Cardiovascular function: WNL Mental status: Baseline Pain reasonably controlled: Yes Hydration appropriate: Yes Nausea/Vomiting absent: Yes Willis Avendano M.D. Jan 22, 2019 08:57
[2019-01-22] MEDS ORDERED: LOSARTAN 50 MG TAB PO SCH (09:00)
[2019-01-22] MEDS ORDERED: CELECOXIB 100 MG CAP PO SCH (09:00)
--- NOTE | 2019-01-22 11:33 | CONS ---
Assessment/Plan Assessment/Plan Hospital Course (Demo Recall) SUBJECTIVE: POD#1.Patient walked with physical therapy this morning. Her blood pressure was 88, symptomatic. OBJECTIVE: Vital signs-see below PHYSICAL EXAM: Constitutional: Morbidly obese female,not in acute distress. HEENT: Head atraumatic and normocephalic. Eyes: Extraocular muscles intact. Anicteric sclerae. Pupils equal bilaterally, reactive to light. NECK: Supple without lymph node. CHEST: Clear and good breath sounds equally. No wheezing. No rhonchi. HEART: S1, S2. Regular rate and rhythm. ABDOMEN: Soft/non tender with no rebound tenderness. Bowel sounds were present. EXTREMITIES: RLE w/MARVA wrap/dressing c/d/i. No cyanosis, clubbing or edema. NEUROLOGIC: Alert and oriented x3. No focal deficit. No sensory deficit. PSYCHOSOCIAL: No signs of depression. INTEGUMENTARY: No open wounds. ASSESSMENT AND PLAN:58-year-old morbidly obese female with a past medical history of seizure disorders, hypertension, hypercholesteremia, Meniscus surgery, right knee osteoarthritis, who was brought in for elective right total knee arthroplasty... Right Knee Osteoarthritis -s/p R total knee arthroplasty,01/21/19 -Post op weight bearing/dvt ppx/pain control per orthopedics team Seizure disorders -Cont.Keppra/Vimpat/Topiramate dosage -Seizure precautions,monitor lites level closely during post op curse -Outpt neuro f/u HTN -Currently BP lower side- resume Losartan in AM Dyslipidemia -cont. statin Morbid obesity/BMI 40.0 -f/u A1C/lipid panel DVT ppx:ASA BID per ortho Medically stable for discharge when appropriate from orthopedic standpoint. Patient was seen in collaboration w/ Consultation Date/Type/Reason Admit Date/Time Jan 21, 2019 at 07:18 Initial Consult Date Type of Consult IM Requesting Provider: RAYSA CLAIRE MD Date/Time of Note DATE: 01/22/19 TIME: 11:30 Exam/Review of Systems Exam Vitals Vital Signs Date Temp Pulse Resp B/P (MAP) Pulse Ox O2 O2 Flow FiO2 Time Delivery Rate 01/22/19 98.4 57 17 88/51 (63) 100 Room Air 07:49 Intake and Output 01/21/19 01/21/1919 1515:00 23:00 07:00 IntakeIntake Total 3790 ml 360 ml OutputOutput Total 50 ml BalanceBalance 3740 ml 360 ml Results Result Diagram: 01/22/19 0423 01/22/19 0423 Results 24hrs Laboratory Tests Test 01/22/19 04:23 01/22/19 07:16 White Blood Count 9.0 Red Blood Count 3.89 L Hemoglobin 11.5 L Hematocrit 35.9 L Mean Corpuscular Volume 92.3 Mean Corpuscular Hemoglobin 29.6 Mean Corpuscular Hemoglobin Concent 32.0 Red Cell Distribution Width 12.8 Platelet Count 150 Mean Platelet Volume 11.2 H Immature Granulocytes % 0.600 H Neutrophils % 65.4 Lymphocytes % 24.2 Monocytes % 8.5 Eosinophils % 0.9 Basophils % 0.4 Nucleated Red Blood Cells % 0.0 Immature Granulocytes # 0.050 H Neutrophils # 5.9 Lymphocytes # 2.2 Monocytes # 0.8 Eosinophils # 0.1 Basophils # 0.0 Nucleated Red Blood Cells # 0.0 Sodium Level 141 Potassium Level 3.8 Chloride Level 110 Carbon Dioxide Level 27 Anion Gap 4 L Blood Urea Nitrogen 16 Creatinine 0.78 Est Glomerular Filtrat Rate mL/min > 60 Glucose Level 87 Hemoglobin A1c 5.5 Calcium Level 8.6 Magnesium Level 2.0 Triglycerides Level 139 Cholesterol Level 132 LDL Cholesterol, Calculated 68 HDL Cholesterol 36 L Cholesterol/HDL Ratio 3.6 Lab Scanned Report REFERENCE LAB Medications Medication Current Medications Hydromorphone HCl (Dilaudid) 0.2 mg Q2H PRN IV .PAIN 1-5; Start 01/21/19 at 11:30 Hydromorphone HCl (Dilaudid) 0.4 mg Q2H PRN IV .PAIN 6-10 Last administered on 01/22/19at 08:39; Admin Dose 0.4 MG; Start 01/21/19 at 11:30 Diphenhydramine HCl (Benadryl) 25 mg Q4H PRN IV .PRURITUS; Start 01/21/19 at 1 1:30 Nalbuphine HCl (Nubain) 10 mg Q4H PRN IV .PRURITUS; Start 01/21/19 at 11:30 Ondansetron HCl (Zofran Inj) 4 mg Q6H PRN IV .NAUSEA/VOMITING; Start 01/21/19 at 11:30 Trimethobenzamide HCl (Tigan) 200 mg Q6H PRN IM .NAUSEA/VOMITING; Start 01/21/19 at 11:30 Zolpidem Tartrate (Ambien) 5 mg HS MAY REPEAT X 1 PRN PO .INSOMNIA; Start 01/21/19 at 11:30 Naloxone HCl (Narcan) 0.2 mg Q2M PRN IV .RESP RATE; Start 01/21/19 at 11:30 Miscellaneous Information (* Miscellaneous Pharmacy Order) DURAMORPH: 0.1 MG SPI... GIVEN NEURAXIAL XX ; Start 01/21/19 at 11:30 IV Flush (NS 3 ml) 3 ml PER PROTOCOL IV ; Start 01/21/19 at 12:30 Oxycodone HCl (Roxicodone) 5 mg Q4H PRN PO .PAIN Last administered on 01/22/19at 10:29; Admin Dose 5 MG; Start 01/21/19 at 12:30 Ketorolac Tromethamine (Toradol) 15 mg Q6H PRN IV .PAIN Last administered on 01/22/19at 10:29; Admin Dose 15 MG; Start 01/21/19 at 12:30 Celecoxib (Celebrex) 100 mg BID PO Last administered on 01/22/19at 08:38; Admin Dose 100 MG; Start 01/22/19 at 09:00 Gabapentin (Neurontin) 100 mg TID PO Last administered on 01/22/19at 08:38; Admin Dose 100 MG; Start 01/21/19 at 13:00 Pantoprazole (Protonix Tab) 40 mg DAILY@06 PO ; Start 01/23/19 at 06:00 Senna/Docusate Sodium (Senokot-S) 2 tab BID PRN PO .CONSTIPATION; Start 01/21/19 at 12:30 Naloxone HCl (Narcan) 0.2 mg Q2M PRN IV .RESP RATE; Start 01/21/19 at 12:30 Losartan Potassium (Cozaar) 100 mg DAILY PO ; Start 01/22/19 at 09:00; Status Hold Sertraline HCl (Zoloft) 100 mg QHS PO Last administered on 01/21/19at 21:56; Admin Dose 100 MG; Start 01/21/19 at 21:00 Topiramate (Topamax) 200 mg BID PO Last administered on 01/22/19 08:38; Admin Dose 200 MG; Start 01/21/19 at 21:00 Lacosamide (Vimpat Liq) 200 mg BID PO Last administered on 01/22/19 08:39; Admin Dose 200 MG; Start 01/21/19 at 21:00 Atorvastatin Calcium (Lipitor) 10 mg DAILY@21 PO Last administered on 01/21/19at 21:56; Admin Dose 10 MG; Start 01/21/19 at 21:00 Levetiracetam (Keppra) 1,000 mg BID PO Last administered on 01/22/19 08:38; Admin Dose 1,000 MG; Start 01/21/19 at 21:00 Lorazepam (Ativan) 1 mg Q2 PRN IV SEIZURES ONLY!!!; Start 01/21/19 at 15:00 LONI FINLEY NP Jan 22, 2019 11:33
[2019-01-22 14:00] VITALS: BP 120/78; RESP 18
[2019-01-22 14:31] VITALS: BP 106/63; PULSE 66; RESP 18
[2019-01-22] MEDS ORDERED: ASPI-535 PO (14:42)
[2019-01-22] MEDS ORDERED: HYDR-4011 PO (14:43)
[2019-01-23] MEDS ORDERED: PANTOPRAZOLE (EC) 40 MG TAB PO SCH (06:00)
== END 2019-01-22 20:20 | disposition home health service (06) | DRG 470 ==
LOC: REC 07:18 → MS1 13:44
PROVIDERS: ADMIT Orthopaedic Surgery Adult Reconstructive Orthopaedic Surgery; ATTEND Orthopaedic Surgery Adult Reconstructive Orthopaedic Surgery
PROC: 0SRC0J9 Replacement of Right Knee Joint with Synthetic Substitute, Cemented, Open Approach (ICD-10-PCS; principal; 2019-01-21 10:30)
DX: M17.11 Unilateral primary osteoarthritis, right knee (principal); Z68.41 Body mass index [BMI] 40.0-44.9, adult; E66.01 Morbid (severe) obesity due to excess calories; I10 Essential (primary) hypertension; E78.5 Hyperlipidemia, unspecified
CPT/HCPCS: 73560; 80048; 80061; 83036; 83735; 85025; 88304; 88311; 97110; 97116; 97161; 97530; C1713; C1776; J0131; J0171; J0690; J1100; J1170; J1885; J2250; J2274; J2405; J2710; J2795; J3010; J3370; J7120

== ENCOUNTER 2019-04-17 05:48 | Day surgery (SDC) | payer OTHER ==
[~2019-04-17] VITALS: Ht 152.4 cm; Wt 86.1 kg
[2019-04-17] VITALS (12 sets, daily range): BP systolic 14–146; BP diastolic 66–96; PULSE 56–68; RESP 13–26; Ht 152.4 cm; Wt 86.1 kg
[~2019-04-17 05:48] MED LIST changes: -ACETAMINOPHEN 500 MG TAB PO ONE; -ADVIL; +ASPI-535 PO; +CALC1TAB79 PO; -CALCIUM + D3; -CEFAZOLIN 1 GM/50 ML (PMX) 50 ML IVPB ONE; -CLONIDINE INJ SCH; -DEXAMETHASONE 4 MG/ML 1 ML INJ IV ONE; +HYDR-4011 PO; -KEPPRA; +LACO200T2 PO; -LANSOPRAZOLE 30 MG CAP PO ONE; +LEVE100018 PO; +LOSA100T15 PO; -LOSARTAN; -MORPHINE SULFATE INJ SCH; -NAPR-985 PO; -ONDANSETRON 4 MG INJ IV ONE; -ROPIVACAINE INJ SCH; +SERT100T PO; +SIMV10TA PO; -SIMVASTATIN; +TOPI100T11 PO; -ZOLOFT; -[UNRECOGNIZED DRUG - OTHER] INJ SCH; -oxyCODONE (CR) 10 MG TAB [oxyCONTIN] PO ONE
[2019-04-17] MEDS ORDERED: LACTATED RINGER'S 1,000 ML IV SCH (06:00)
[2019-04-17] MEDS ORDERED: PROPOFOL 20 ML ONE (07:59)
[2019-04-17] MEDS ORDERED: LIDOCAINE 2% (SDV) 5 ML INJ ONE (07:59)
[2019-04-17] MEDS ORDERED: SUCCINYLCHOLINE CHLORIDE 100 MG/5 ML SYG IV ONE (08:02)
[2019-04-17] MEDS ORDERED: FENTAnyl 50 MCG/ML VIAL ONE (08:29)
[2019-04-17] MEDS ORDERED: OXYCODONE/ACETAMINOPHEN (5/325) TAB PO PRN ×2 (08:30)
[2019-04-17] MEDS ORDERED: METOCLOPRAMIDE 10 MG INJ IV PRN (08:30)
[2019-04-17] MEDS ORDERED: MIDAZOLAM 1 MG/ML 2 ML INJ IV PRN (08:30)
[2019-04-17] MEDS ORDERED: KETOROLAC 30 MG INJ IV PRN (08:30)
[2019-04-17] MEDS ORDERED: ONDANSETRON 4 MG INJ IV PRN (08:30)
[2019-04-17] MEDS ORDERED: HYDROCODONE/APAP (5/325) TAB PO PRN (08:30)
[2019-04-17] MEDS ORDERED: LABETALOL HCL 20MG INJ IV PRN (08:30)
[2019-04-17] MEDS ORDERED: DIPHENHYDRAMINE 50 MG INJ IV PRN (08:30)
[2019-04-17] MEDS ORDERED: hydrALAzine 20 MG INJ IV PRN (08:30)
[2019-04-17] MEDS ORDERED: EPHEDrine 25 MG/5 ML SYG IV PRN (08:30)
[2019-04-17] MEDS ORDERED: FENTAnyl 50 MCG/ML VIAL IV PRN ×3 (08:30)
[2019-04-17] MEDS ORDERED: HYDROmorphONE 1 MG/5 ML IV SYRINGE IV PRN ×3 (08:30)
[2019-04-17] MEDS ORDERED: MEPERIDINE 25 MG INJ IV PRN (08:30)
== END 2019-04-17 09:55 | disposition home or self-care (01) ==
LOC: SDS 05:48
PROVIDERS: ATTEND Orthopaedic Surgery Adult Reconstructive Orthopaedic Surgery
DX: M24.661 Ankylosis, right knee (principal); I10 Essential (primary) hypertension; E78.5 Hyperlipidemia, unspecified; E66.9 Obesity, unspecified; F12.90 Cannabis use, unspecified, uncomplicated
CPT/HCPCS: 73560; J1170; J3010